=== PATIENT | female | born 1990 | race Two or more races ===

== ENCOUNTER 2016-11-11 10:24 | Emergency (ER) | payer MEDICAID ==
[~2016-11-11] VITALS: Ht 152.4 cm; Wt 59.0 kg
[2016-11-11 10:36] VITALS: BP 110/63
[2016-11-11 11:13] LABS: Basophils # (auto) 0 uL; Basophils % (auto) 0.1 % (0.0-2.0); DEFINITIVE VIEW TRANSMISSION; Eosinophils # (auto) 0 uL; Eosinophils % (auto) 0.4 % (0.0-7.0); Hematocrit 37.6 % (36.0-46.0); Hemoglobin 12.4 g/dL (12.2-16.2); Lymphocytes # (auto) 1.3 uL; Mean Corpuscular Hgb Conc. 32.8 g/dL (32.0-36.0); Mean Corpuscular Volume 79.2 fL (80.0-100.0); Mean Platelet Volume 8.7 fL (7.4-10.4); Monocytes # (auto) 0.4 uL; Monocytes % (auto) 5.1 % (0.0-12.0); Neutrophils # (auto) 5.4 uL; Neutrophils % (auto) 76.4 % (37.0-80.0); Platelet Count (auto) 237 10^3/uL (140-450); Red Cell Distribution Width 13.1 % (11.6-16.0)
[2016-11-11 11:44] LABS: Albumin 3.8 g/dL (3.4-5.0); BUN/Creatinine Ratio 13.7; Bilirubin, Total 0.4 mg/dL (0.2-1.0); Calcium 8.9 mg/dL (8.5-10.1); Magnesium 2.2 mg/dL (1.6-2.6); Potassium 3.8 mmol/L (3.5-5.1); Total Protein 7.7 g/dL (6.4-8.2)
[2016-11-11 11:47] LABS: Amylase 66 U/L (25-115)
== END 2016-11-11 14:32 | disposition left against medical advice (07) ==
LOC: ER 10:31
DX: O21.8 Other vomiting complicating pregnancy (principal); R10.84 Generalized abdominal pain; Z3A.00 Weeks of gestation of pregnancy not specified; Z53.21 Procedure and treatment not carried out due to patient leaving prior to being seen by health care provider
CPT/HCPCS: 36415; 80053; 82150; 83690; 83735; 84702; 85025

== ENCOUNTER 2017-02-24 18:00 | Observation (INO) | payer MEDICAID ==
[~2017-02-24] VITALS: Ht 154.9 cm; Wt 69.4 kg
[2017-02-24] MEDS ORDERED: ONDANSETRON HCL 4 MG/2 ML VIAL IV ONE (18:45)
[2017-02-24] MEDS ORDERED: LOPERAMIDE 2 MG/10ml ORAL soln PO ONE (18:45)
[2017-02-24] MEDS ORDERED: LACTATED RINGER'S 1,000 ML IV ONE (18:49)
[2017-02-24 19:18] LABS: Basophils # (auto) 0 uL; Basophils % (auto) 0.3 % (0.0-2.0); DEFINITIVE VIEW TRANSMISSION; Eosinophils # (auto) 0 uL; Eosinophils % (auto) 0.1 % (0.0-7.0); Hematocrit 35.3 % (36.0-46.0); Hemoglobin 11.7 g/dL (12.2-16.2); Lymphocytes # (auto) 0.4 uL; Lymphocytes % (auto) 5.7 % (10.0-50.0); Mean Corpuscular Hemoglobin 26.2 pg (28.0-32.0); Mean Corpuscular Hgb Conc. 33.2 g/dL (32.0-36.0); Mean Corpuscular Volume 78.8 fL (80.0-100.0); Mean Platelet Volume 8.9 fL (7.4-10.4); Monocytes # (auto) 0.2 uL; Monocytes % (auto) 2.6 % (0.0-12.0); Neutrophils # (auto) 6.7 uL; Neutrophils % (auto) 91.3 % (37.0-80.0); Platelet Count (auto) 206 10^3/uL (140-450); Red Cell Distribution Width 13.6 % (11.6-16.0); White Blood Cell 7.4 10^3/uL (4.4-10.8)
[2017-02-24] MEDS ORDERED: LOPERAMIDE HCL 2 MG CAP PO ONE (19:30)
[2017-02-24 19:44] LABS: Albumin 3.1 g/dL (3.4-5.0); BUN/Creatinine Ratio 16.7; Calcium 7.9 mg/dL (8.5-10.1); Potassium 3.2 mmol/L (3.5-5.1)
[2017-02-24 19:47] LABS: Bilirubin, Total 0.8 mg/dL (0.2-1.0); Total Protein 6.9 g/dL (6.4-8.2)
== END 2017-02-24 20:18 | disposition home or self-care (01) | DRG 566 ==
LOC: LDRP 18:00
PROVIDERS: ADMIT Specialist; ATTEND Specialist
DX: O21.2 Late vomiting of pregnancy (principal); O26.892 Other specified pregnancy related conditions, second trimester; R19.7 Diarrhea, unspecified; Z3A.23 23 weeks gestation of pregnancy
CPT/HCPCS: 36415; 59025; 80053; 81002; 85025; 96374; G0378; J2405; 96365; 96375

== ENCOUNTER 2017-06-05 15:35 | Observation (INO) | payer MEDICAID ==
[2017-06-05] MEDS ORDERED: LACTATED RINGER'S 1,000 ML IV ONE (17:30)
== END 2017-06-05 22:08 | disposition home or self-care (01) | DRG 566 ==
LOC: LDRP 15:35
PROVIDERS: ADMIT Obstetrics & Gynecology; ATTEND Obstetrics & Gynecology
DX: O42.92 Full-term premature rupture of membranes, unspecified as to length of time between rupture and onset of labor (principal); O62.9 Abnormality of forces of labor, unspecified; Z3A.38 38 weeks gestation of pregnancy
CPT/HCPCS: 59025; 76815; 76818; 81002; 96360; G0378; 96361; 96366

== ENCOUNTER 2019-10-03 11:24 | Emergency (ER) | payer MEDICAID ==
[~2019-10-03] VITALS: Ht 154.9 cm; Wt 69.9 kg
[2019-10-03 11:52] VITALS: BP 97/55
== END 2019-10-03 13:04 | disposition home or self-care (01) ==
LOC: ER 11:24
DX: J06.9 Acute upper respiratory infection, unspecified (principal)
CPT/HCPCS: 71046

== ENCOUNTER 2025-01-13 06:13 | Emergency (ER) | payer MEDICAID ==
[~2025-01-13] VITALS: Ht 154.9 cm; Wt 75.0 kg
[2025-01-13 06:25] VITALS: BP 122/78; PULSE 92; RESP 18; TEMP 98.3; O2SAT 97
--- NOTE | 2025-01-13 06:55 | ED.PDOC ---
SOB-HPI HPI Comments A 34 YEAR OLD FEMALE PRESENTS TO THE ED WITH CHIEF COMPLAINT OF FLU-LIKE ILLNESS. PATIENT REPORTS THAT SHE HAS BEEN EXPERIENCING A COUGH WITH ASSOCIATED FEVER, NASAL CONGESTION, CHEST PRESSURE, AND SORE THROAT FOR THE PAST 3 DAYS. PATIENT RELAYS THAT SHE HAD BEEN EXPOSED TO HER SON WHO WAS SICK AT HOME FOR THE PAST FEW DAYS. PATIENT DENIES ANY N/V/D, ABDOMINAL PAIN, CHILLS, HEADACHE, DIZZINESS, SOB, OR EAR PAIN. NO OTHER SYMPTOMS REPORTED AT THIS TIME OF CARE. Chief Complaint: Flu like Time Seen by MD: 06:52 Primary Care Provider: ANNABEL Reviewed notes: Nurses Notes, Medications, Allergies Information Source: Patient Mode of Arrival: Ambulatory Severity: Moderate Timing: Days Duration: Since onset Context: At Rest PE Risk Factors: None History of: Recent URI Prehospital treatment: None Modifying Factors: Nothing Associated Signs and Symptoms: Fever, Cough, Nasal Congestion, Sore Throat Quality: Pressure Radiation: No Radiation Location: Substernal If cough with SOB: Productive Past Medical History PAST MEDICAL HISTORY: Denies Surgical History: Denies all surgeries 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 Family History Family History: Unknown Social History Smoker: Non-Smoker Alcohol: Denies ETOH Use Drugs: Denies Drug Use Lives In: Home Constitutional: reports: fever; denies: chills, diaphoresis, fatigue, malaise, sweats, weakness, others EENTM: reports: nose congestion, throat pain, throat swelling; denies: blurred vision, double vision, ear bleeding, ear discharge, ear drainage, ear pain, ear ringing, eye pain, eye redness, hearing loss, mouth pain, mouth swelling, nasal discharge, nose bleeding, nose pain, photophobia, tearing, voice changes, others Respiratory: reports: cough; denies: hemoptysis, orthopnea, SOB at rest, shortness of breath, SOB with excertion, stridor, wheezing, others Cardiovascular: reports: chest pain; denies: dizzy spells, diaphoresis, Dyspnea on exertion, edema, irregular heart beat, left arm pain, lightheadedness, palpitations, PND, syncope, others Gastrointestinal: denies: abdomen distended, abdominal pain, blood streaked bowels, constipated, diarrhea, dysphagia, difficulty swallowing, hematemesis, melena, nausea, poor appetite, poor fluid intake, rectal bleeding, rectal pain, vomiting, others Genitourinary: denies: abnormal vagina bleeding, burning, dyspareunia, dysuria, flank pain, frequency, hematuria, incontinence, pain, , vagina discharge, urgency, others Neurological: denies: dizziness, fainting, headache, left sided numbness, left sided weakness, numbness, paresthesia, pre-existing deficit, right sided numbness, right sided weakness, seizure, speech problems, tingling, tremors, weakness, others Musculoskeletal: denies: back pain, gout, joint pain, joint swelling, muscle pain, muscle stiffness, neck pain, others Integumetry: denies: bruises, change in color, change in hair/nails, dryness, laceration, lesions, lumps, rash, wounds, others Allergic/Immunocompromised: denies: Difficulty Healing, Frequent Infections, Hives, Itching, others Hematologic/Lymphatic: denies: anemia, blood clots, easy bleeding, easy bruising, swollen glands, others Endocrine: denies: excessive hunger, excessive sweating, excessive thirst, excessive urination, flushing, intolerance to cold, intolerance to heat, unexplained weight gain, unexplained weight loss, others Psychiatric: denies: anxiety, bipolar disorder, depression, hopeless, panic disorder, schizophrenia, sleepless, suicidal, others All Other Systems: Reviewed and Negative Physical Exam General Appearance: No Apparent Distress, Normal HEENT: PERRL/EOMI, Pharyngeal Erythema (TONSILLAR SWELLING, NO EXUDATES. ) Neck: Full Range of Motion, Non-Tender, Normal, Normal Inspection Respiratory: Chest Non-Tender, Expiration, No Accessory Muscle Use, No Respiratory Distress, Rhonchi Cardiovascular: No Edema, No JVD, No Murmur, No Gallop, Normal Peripheral Pulses, Regular Rate/Rhythm Breast Exam: Deferred Gastrointestinal: No Organomegaly, Non Tender, No Pulsatile Mass, Normal Bowel Sounds, Soft Genitalia: Deferred Pelvic: Deferred Rectal: Deferred Extremities: No calf tenderness, Normal capillary refill, Normal inspection, Normal range of motion, Non-tender, No pedal edema Musculoskeletal : Apperance: Normal Neurologic: Alert, infection prevention coordinator II-XII nml as Tested, No Motor Deficits, Normal Affect, Normal Mood, No Sensory Deficits Cerebellar Function: Normal Reflexes: Normal Skin: Dry, Normal Color, Warm Peripheral Pulses: 2+ carotid (R), 2+ carotid (L) Lymphatic: No Adenopathy Was a procedure done? Was a procedure done?: No Differential Dx Differential Diagnosis: Bronchitis, COPD, Pneumonia, Sinusitis, Allergic Rhinitis, Otitis Media, Pharyngitis, URI X-Ray, Labs, Meds, VS Vital Signs Date Time Temp Pulse Resp B/P (MAP) Pulse Ox O2 Delivery O2 Flow Rate FiO2 01/13/25 06:25 Room Air 01/13/25 06:25 98.3 92 18 122/78 (93) 97 98.3 01/13/25 06:25 98.3 92 18 122/78 (93) 97 Current Medications Medications (Trade) Dose Ordered Sig/Mackenzie Route Start Time Stop Time Status Last Admin Ceftriaxone Sodium (Rocephin) 1,000 mg ONCE ONCE IM 01/13/25 07:00 01/13/25 07:01 DC 01/13/25 07:02 X-Ray, Labs, Meds, VS Comment EXTERNAL MEDICAL RECORDS REVIEWED: [NONE] INDEPENDENT HISTORIANS: [NONE] SOCIAL DETERMINANTS OF HEALTH: [NONE] LABS ORDERED: NONE REVIEWED AND INTERPRETED RESULTS: CHEST XR INTERPRETED BY ME. NO ACUTE FINDINGS. NO PNEUMONIA. NO CONSOLIDATIONS. NO INFILTRATES. PENDING RADIOLOGIST REPORT. IMAGING ORDERED: CHEST XR: NO ACUTE FINDING, READ BY ME, PENDING RADIOLOGIST READING. TREATMENTS ORDERED: ROCEPHIN 1G IM PROCEDURES PERFORMED: NONE CRITICAL CARE TIME: NONE I HAVE DISCUSSED THE PATIENT WITH THE ATTENDING PHYSICIAN DR. KUMAR AND HE AGREES WITH THE PATIENT'S PLAN OF CARE AND DISPOSITION. BASED ON HISTORY OF PRESENT ILLNESS, AND PHYSICAL EXAM, PATIENT WILL BE DISCHARGED HOME. DISCUSSED PLAN FOR DISCHARGE HOME WITH RX. MEDICATION WARNINGS GIVEN. SHARED DECISION MAKING: DISCUSSED WITH PATIENT THAT THEIR WORKUP WAS NORMAL. PATIENT INSTRUCTED TO FOLLOW UP WITH PRIMARY CARE PROVIDER IN 1-2 DAYS FOR RE- EVALUATION OF SYMPTOMS. PATIENT VERBALIZES UNDERSTANDING TO RETURN TO ED FOR NEW OR WORSENING SYMPTOMS OR IF FOLLOW UP WITH PCP CANNOT BE OBTAINED. PATIENT FEELS COMFORTABLE GOING HOME AT THIS TIME. ALL QUESTIONS ADDRESSED AT TIME OF DISCHARGE. Images Reviewed?: Images reviewed and evaluated by me Time of 1ST Reevaluation: 07:20 Reevaluation 1ST: Improved Patient Education/Counseling: Diagnosis, Treatment, Need For Follow Up Family Education/Counseling: Diagnosis, Treatment, Need For Follow Up Medical Screening: No EMC Exist At This Time Departure 1 Departure Time of Disposition: 07:20 Impression: Primary Impression: Acute erythematous tonsillitis Additional Impression: Acute bronchitis Qualified Codes: J20.9 - Acute bronchitis, unspecified Disposition: HOME / SELF CARE / HOMELESS Condition: Stable Additional Instructions: FOLLOW-UP WITH PCP IN 1 TO 2 DAYS. TAKE MEDICATIONS PRESCRIBED. RETURN TO ED FOR ANY NEW OR WORSENING SYMPTOMS. e-Prescriptions Promethazine-Dm (Promethazine Dm 6.25-15 mg/5Ml) 1 Opal Opal 5 ML PO TID, #160 ML Prov: LAINE HOWELL 01/13/25 Azithromycin (Azithromycin) 500 Mg Tab 1 TAB PO DAILY, #5 TAB Prov: LAINE HOWELL 01/13/25 Discharged With: Self, Relative Critical Care Note Critical Care Time?: No Stability Stability form required: No Heart Score Heart Score: Heart Score Response (Comments) Value History N/A 0 EKG N/A 0 Age N/A 0 Risk Factors N/A 0 Troponin N/A 0 Total 0 I personally scribed for LAINE HOWELL ([email or web address]) on 01/13/25 at 06:55. Electronically submitted by Martínez Albrecht ([email or web address]). I personally scribed for LAINE HOWELL ([email or web address]) on 01/13/25 at 07:02. Electronically submitted by Martínez Albrecht ([email or web address]). LAINE HOWELL Jan 13, 2025 06:55
[2025-01-13] MEDS ORDERED: AZIT500T66 PO (07:01)
[2025-01-13] MEDS ORDERED: PROM1SOL4 PO (07:01)
[2025-01-13] MEDS: cefTRIAXone SOD 1,000 MG VL IM ONE (07:02)
--- NOTE | 2025-01-13 07:12 | DVH ---
EXAM: XR Chest, 1 View CLINICAL INDICATION: COUGH TECHNIQUE: Frontal view of the chest. COMPARISON: None FINDINGS: LUNGS AND PLEURAL SPACES: Unremarkable. No consolidation. No pneumothorax. HEART: Unremarkable. No cardiomegaly. MEDIASTINUM: Unremarkable. Normal mediastinal contour. BONES/JOINTS: Unremarkable. No acute fracture. OTHER FINDINGS: . None. IMPRESSION: No acute cardiopulmonary process.
== END 2025-01-13 07:14 | disposition home or self-care (01) ==
LOC: ER 06:13
DX: J03.90 Acute tonsillitis, unspecified (principal); J20.9 Acute bronchitis, unspecified
CPT/HCPCS: 71045; 96372; 99283; J0696

== ENCOUNTER 2025-09-27 05:59 | Inpatient (IN) | payer MEDICAID ==
[~2025-09-27] VITALS: Ht 154.9 cm; Wt 71.2 kg
[~2025-09-27 05:59] MED LIST: AZIT500T66 PO; PROM1SOL4 PO
--- NOTE | 2025-09-27 06:12 | ECG ---
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
--- NOTE | 2025-09-27 06:31 | ED.PDOC ---
HPI Comments 35 year old female presents to the ED with a chief complaint of chest pain onset 1 day. Patient states she began experiencing LT sided substernal chest pain radiates to epigastric region for the past day, describes pain as a cramping sensation. Currently rates pain 8/10. She is also experiencing nausea/vomiting. Denies any possibilty of , states she is currently on her menstrual cycle, P:5. Denies shortness of breath, diarrhea, constipation, hematemesis,dysuria, hematuria, fever, chills, dizziness, headache. No other symptoms or modifying factors present at this time. Chief Complaint: Chest Pain Time Seen by MD: 06:10 Primary Care Provider: ANNABEL Reviewed Notes: Nurses Notes, Medications, Allergies Allergies: Coded Allergies: NO KNOWN ALLERGIES (Unverified , 03/08/14) Home Meds Active Scripts Promethazine-Dm (Promethazine Dm 6.25-15 mg/5Ml) 1 Opal Opal, 5 ML PO TID, #160 ML Prov:LAINE HOWELL 01/13/25 Azithromycin (Azithromycin) 500 Mg Tab, 1 TAB PO DAILY, #5 TAB Prov:LAINE HOWELL 01/13/25 Information Source: Patient Mode of Arrival: Ambulatory Severity: Moderate Timing: Days Duration: Since onset Prehospital treatment: None Location: Chest (L) Radiation: Abdomen Quality: Aching Onset: At Rest Cardiac Risk Factors: None PE Risk Factors: None History of: None Modifying Factors: Nothing Associated Signs and Symptoms: Abdominal Pain Past Medical History PAST MEDICAL HISTORY: Denies Surgical History: 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 Family History Family History: Family hx of DM, Family hx of HTN Social History Smoker: Non-Smoker Alcohol: Occasionally Drugs: Denies Drug Use Lives In: Home Constitutional: denies: chills, diaphoresis, fatigue, fever, malaise, sweats, weakness, others EENTM: denies: blurred vision, double vision, ear bleeding, ear discharge, ear drainage, ear pain, ear ringing, eye pain, eye redness, hearing loss, mouth pain, mouth swelling, nasal discharge, nose bleeding, nose congestion, nose pain, photophobia, tearing, throat pain, throat swelling, voice changes, others Respiratory: denies: cough, hemoptysis, orthopnea, SOB at rest, shortness of breath, SOB with excertion, stridor, wheezing, others Cardiovascular: reports: chest pain; denies: dizzy spells, diaphoresis, Dyspnea on exertion, edema, irregular heart beat, left arm pain, lightheadedness, palpitations, PND, syncope, others Gastrointestinal: reports: abdominal pain, nausea, vomiting; denies: abdomen distended, blood streaked bowels, constipated, diarrhea, dysphagia, difficulty swallowing, hematemesis, melena, poor appetite, poor fluid intake, rectal bleeding, rectal pain, others Genitourinary: denies: abnormal vagina bleeding, burning, dyspareunia, dysuria, flank pain, frequency, hematuria, incontinence, pain, , vagina discharge, urgency, others Neurological: denies: dizziness, fainting, headache, left sided numbness, left sided weakness, numbness, paresthesia, pre-existing deficit, right sided numbness, right sided weakness, seizure, speech problems, tingling, tremors, weakness, others Musculoskeletal: denies: back pain, gout, joint pain, joint swelling, muscle pain, muscle stiffness, neck pain, others Integumetry: denies: bruises, change in color, change in hair/nails, dryness, laceration, lesions, lumps, rash, wounds, others Allergic/Immunocompromised: denies: Difficulty Healing, Frequent Infections, Hives, Itching, others Hematologic/Lymphatic: denies: anemia, blood clots, easy bleeding, easy bruising, swollen glands, others Endocrine: denies: excessive hunger, excessive sweating, excessive thirst, excessive urination, flushing, intolerance to cold, intolerance to heat, unexplained weight gain, unexplained weight loss, others Psychiatric: denies: anxiety, bipolar disorder, depression, hopeless, panic disorder, schizophrenia, sleepless, suicidal, others All Other Systems: Reviewed and Negative Physical Exam General Appearance: Moderate Distress HEENT: Normal ENT Inspection, Pharynx Normal, TMs Normal Neck: Full Range of Motion, Non-Tender, Normal, Normal Inspection Respiratory: Chest Non-Tender, Lungs Clear, No Accessory Muscle Use, No Respiratory Distress, Normal Breath Sounds Cardiovascular: No Edema, No JVD, No Murmur, No Gallop, Normal Peripheral Pulses, Regular Rate/Rhythm Breast Exam: Deferred Gastrointestinal: Epigastric, No Organomegaly, No Pulsatile Mass, Normal Bowel Sounds, Soft, Tenderness Genitalia: Deferred Pelvic: Deferred Rectal: Deferred Extremities: No calf tenderness, Normal capillary refill, Normal inspection, Normal range of motion, Non-tender, No pedal edema Musculoskeletal : Apperance: Normal Neurologic: Alert, esol teacher assistant II-XII nml as Tested, No Motor Deficits, Normal Affect, Normal Mood, No Sensory Deficits Cerebellar Function: Normal Reflexes: Normal Skin: Dry, Normal Color, Warm Lymphatic: No Adenopathy EKG EKG : Pulse Rate (adult): 70 Cardiac Rhythm: NSR Was a procedure done? Was a procedure done?: No CP Differential Dx Differential Diagnosis: Angina, VA, Other (Cholelithiasis) Differential Diagnosis: Pericarditis X-Ray, Labs, Meds, VS Vital Signs Date Time Temp Pulse Resp B/P (MAP) Pulse Ox O2 Delivery O2 Flow Rate FiO2 09/27/25 07:14 69 09/27/25 06:31 70 09/27/25 06:09 70 09/27/25 06:02 98.5 66 16 134/87 97 98.5 Lab Test 09/27/25 07:05 09/27/25 06:15 Range/Units Total Bilirubin Pending Direct Bilirubin Pending Aspartate Amino Transferase (AST) Pending Alanine Aminotransferase (ALT) Pending Alkaline Phosphatase Pending Troponin I High Sensitivity Pending 6 </=34 ng/L Total Protein Pending Albumin Pending White Blood Count 3.0 L 4.4-10.8 10^3/uL Red Blood Count 4.31 4.0-5.20 10^6/uL Hemoglobin 11.9 L 12.2-16.2 g/dL Hematocrit 35.3 L 36.0-46.0 % Mean Corpuscular Volume 81.9 80.0-100.0 fL Mean Corpuscular Hemoglobin 27.6 L 28.0-32.0 pg Mean Corpuscular Hemoglobin Concent 33.7 32.0-36.0 g/dL Red Cell Distribution Width 12.5 11.8-14.3 % Platelet Count 261 140-450 10^3/uL Mean Platelet Volume 7.7 6.9-10.8 fL Neutrophils (%) (Auto) 54.1 37.0-80.0 % Lymphocytes (%) (Auto) 36.5 10.0-50.0 % Monocytes (%) (Auto) 7.5 0.0-12.0 % Eosinophils (%) (Auto) 1.3 0.0-7.0 % Basophils (%) (Auto) 0.6 0.0-2.0 % Neutrophils # (Auto) 1.6 1.6-8.6 10 ^3/uL Lymphocytes # (Auto) 1.1 0.4-5.4 10 ^3/uL Monocytes # (Auto) 0.2 0-1.3 10 ^3/uL Eosinophils # (Auto) 0 0-0.8 10 ^3/uL Basophils # (Auto) 0 0-0.2 10 ^3/uL Nucleated Red Blood Cells 0.1 % Sodium Level 141 136-145 mmol/L Potassium Level 3.7 3.5-5.1 mmol/L Chloride Level 104 98-107 mmol/L Carbon Dioxide Level 27 20-31 mmol/L Anion Gap 10 5-15 Blood Urea Nitrogen 11 9-23 mg/dL Creatinine 0.65 0.550-1.02 mg/dL Glomerular Filtration Rate Calc 117 >90 mL/min BUN/Creatinine Ratio 16.9 10.0-20.0 Serum Glucose 91 74-106 mg/dL Calcium Level 9.0 8.7-10.4 mg/dL Lipase Pending IMPRESSION: 1. No acute cardiopulmonary disease. The patient's CBC is within normal limits except for leukopenia at 3.0 The chemistry panel is within normal limits. The ultrasound of the gallbladder shows: IMPRESSION: 1. Dilated common bile duct measuring 0.8 cm. No filling defect. MRCP recommended for further evaluation. 2. Hepatic steatosis. At this time, the patient had an IV Hep-Lock established. The patient was given Protonix 40 mg IV push The patient was given Zofran 4 mg IV push The patient is being admitted at this time We did order liver enzymes to assess a need for MRCP. The patient understands and agrees with the management. Images Reviewed?: Images reviewed and evaluated by me Time of 1ST Reevaluation: 06:40 Reevaluation 1ST: Unchanged Patient Education/Counseling: Diagnosis, Treatment, Prognosis Family Education/Counseling: No Family Present SEPSIS Sepsis Screen Date sepsis recognized/suspect: Sep 27, 2025 Time Sepsis recognized/suspect: 0604 Recent Procedure: No On Antibiotic Therapy: No Respiratory Rate >20: No Heart Rate >90: No Temp<36 C (96.8 F) or >38.3 C: No SBP <90 or MAP <65 mmHG: No New Acute Mental Status Change: No Is the patient on CPAP, BIPAP,: No Physician Orders Chest Portable (09/27/25 06:05) Troponin-I Hs (09/27/25 07:05) Troponin-I Hs (09/27/25 09:05) Electrocardigram (09/27/25 09:05) Gallbladder (09/27/25 06:17) Lipase (09/27/25 06:17) Heplock Iv (09/27/25 ) Hepatic Panel (09/27/25 07:16) Vital Signs Date Time Temp Pulse Resp B/P (MAP) Pulse Ox O2 Delivery O2 Flow Rate FiO2 09/27/25 07:14 69 09/27/25 06:31 70 09/27/25 06:09 70 09/27/25 06:02 98.5 66 16 134/87 97 98.5 Laboratory Tests Test 09/27/25 06:15 White Blood Count 3.0 10^3/uL (4.4-10.8) L Departure 1 Departure Time of Disposition: 07:27 Impression: Primary Impression: Intractable abdominal pain Additional Impressions: Acute vomiting Common bile duct dilatation Disposition: ADMITTED INPATIENT Admit to: Med Surg Condition: Fair Critical Care Note Critical Care Time?: No Stability Stability form required: Yes Unstable for transfer: ED Physician Assesment (Clinical assesment) Heart Score Heart Score: Heart Score Response (Comments) Value History N/A 0 EKG N/A 0 Age N/A 0 Risk Factors N/A 0 Troponin N/A 0 Total 0 I personally scribed for RJ ARIAS MD ([email or web address]) on 09/27/25 at 06:31. Electronically submitted by Aminata Arzate ([email or web address]). I personally scribed for RJ ARIAS MD ([email or web address]) on 09/27/25 at 07:19. Electronically submitted by Aminata Arzate ([email or web address]). RJ ARIAS MD Sep 27, 2025 06:31
[2025-09-27 06:38] LABS: Hematocrit 35.3 % (36.0-46.0); Hemoglobin 11.9 g/dL (12.2-16.2); Mean Corpuscular Hemoglobin 27.6 pg (28.0-32.0); Mean Corpuscular Volume 81.9 fL (80.0-100.0); Nucleated Red Blood Cells % 0.1 %
[2025-09-27 06:42] LABS: Chloride 104 mmol/L (98-107); Potassium 3.7 mmol/L (3.5-5.1); Sodium 141 mmol/L (136-145)
[2025-09-27 06:43] LABS: Anion Gap 10 (5-15); Calcium 9.0 mg/dL (8.7-10.4); Carbon Dioxide 27 mmol/L (20-31)
[2025-09-27 06:48] LABS: BUN/Creatinine Ratio 16.9 (10.0-20.0); Blood Urea Nitrogen 11 mg/dL (9-23); Glucose 91 mg/dL (74-106)
--- NOTE | 2025-09-27 07:07 | DVH ---
EXAM: US GALLBLADDER INDICATION: pain TECHNIQUE: Multiple real-time sonographic images were obtained of the right upper quadrant. COMPARISON: None FINDINGS: The liver demonstrates increased echotexture without focal mass lesions. The liver measures 16.6 cm. There is hepatopedal color doppler flow in the main portal vein. There is no intrahepatic biliary ductal dilatation. The gallbladder is without evidence of stone or sludge. The gallbladder wall measures 0.3 cm. The common bile duct measures 0.8 cm. No filling defect. There is a negative sonographic Wilson's sign. The right kidney measures 11.2 cm. The right kidney is normal in contour, size, and shape. The echogenicity is normal. There is no hydronephrosis. The pancreas is not well visualized due to overlying bowel gas. Visualized portions of the aorta and inferior vena cava are unremarkable. No evidence of ascites. IMPRESSION: 1. Dilated common bile duct measuring 0.8 cm. No filling defect. MRCP recommended for further evaluation. 2. Hepatic steatosis.
--- NOTE | 2025-09-27 07:15 | ECG ---
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
--- NOTE | 2025-09-27 07:17 | DVH ---
CHEST RADIOGRAPH Indication: CHEST PAIN Technique: Single frontal view of the chest was obtained Comparison: XY CHEST XRAY 1 VIEW on DOS: 01/13/25 FINDINGS: Lines and Tubes: None Lungs: No focal consolidation. Pleura: No effusion. No pneumothorax. Cardiomediastinal contours: Unremarkable Bones: No acute osseous abnormality. IMPRESSION: 1. No acute cardiopulmonary disease.
[2025-09-27] MEDS: PANTOPRAZOLE 40 MG/10 ML VIAL INJ IV ONE (07:44)
[2025-09-27] MEDS: ONDANSETRON HCL 4 MG/2 ML VIAL IV ONE (07:44)
[2025-09-27 07:54] LABS: Alanine Aminotransferase 21.0 U/L (7-40); Albumin 4.4 g/dL (3.2-4.8); Alkaline Phosphatase 56.0 U/L (46-116); Bilirubin, Direct 0.1 mg/dL (<0.3); Bilirubin, Total 0.5 mg/dL (0.2-1.0); Total Protein 6.9 g/dL (5.7-8.2)
--- NOTE | 2025-09-27 09:29 | ECG ---
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
[2025-09-27 10:14] VITALS: BP 136/51; PULSE 68; RESP 16; TEMP 98.1; O2SAT 98
[2025-09-27] MEDS ORDERED: DULO1CAP6 PO (10:27)
[2025-09-27] MEDS ORDERED: ALPR0.5T8 PO (10:27)
[2025-09-27] MEDS ORDERED: ONDANSETRON HCL 4 MG/2 ML VIAL IV PRN (10:30)
[2025-09-27] MEDS ORDERED: DOCUSATE SOD 100 MG CAP PO PRN (10:30)
[2025-09-27] MEDS ORDERED: MORPHINE SULFATE INJ 2 MG/ml SYRG IV PRN (10:30)
[2025-09-27] MEDS ORDERED: HYDROcodone-ACET 5/325MG TAB PO PRN (10:30)
[2025-09-27] MEDS ORDERED: ACETAMINOPHEN 325 MG TAB PO PRN (10:30)
[2025-09-27] MEDS ORDERED: ALPRAZolam 0.5 MG TAB PO PRN (10:30)
--- NOTE | 2025-09-27 10:37 | DVHHP2 ---
History of Present Illness Reason for Visit: Abdomianl pain History of Present Illness Violet Esquivel is a 35-year-old female with past medical history of anxiety, who came to the hospital for abdominal pain. States she began having epigastric pain with associated nausea and vomiting last night. Her symptoms continued and did not improve prompting her to come to the hospital this morning. Psych: Anxiety Past Surgical History: None Smoke: No ALCOHOL: none Drugs: None Lives: with Family Domestic Violence: Neg Review of Systems Constitutional: No: Fever, Chills, Sweats, Weakness, Malaise, Other Eyes: No: Pain, Vision change, Conjunctivae inflammation, Eyelid inflammation, Other, Redness ENT: No: Ear pain, Ear discharge, Nose pain, Nose discharge, Nose congestion, Mouth pain, Mouth swelling, Throat pain, Throat swelling, Other Respiratory: No: Cough, Dry, Shortness of breath, SOB with excertion, Wheezing, Hemoptysis, Pleuritic Pain, Sputum, Wheezing, Other Cardiovascular: No: Chest Pain, Palpitations, Orthopnea, Paroxysmal Noc. Dyspnea, Edema, Lt Headedness, Other Gastrointestinal: Nausea, Vomiting, Abdominal Pain (epigastric); No: Diarrhea, Constipation, Melena, Hematochezia, Other Genitourinary: No Dysuria, No Frequency, No Incontinence, No Hematuria, No Retention, No Other Musculoskeletal: No: other, neck pain, shoulder pain, arm pain, back pain, hand pain, leg pain, foot pain Skin: No: Rash, Lesions, Jaundice, Bruising, Other Neurological: No: Weakness, Numbness, Incoordination, Change in speech, Confusion, Seizures, Other Allergies: Coded Allergies: NO KNOWN ALLERGIES (Unverified , 03/08/14) Medications Current Medications Medications Dose Ordered Sig/Mackenzie Route Start Time Stop Time Status Last Admin Dose Admin Acetaminophen/ Hydrocodone Bitart 1 tab Q4HP PRN PO 09/27/25 10:30 UNV Ondansetron HCl 4 mg Q4HP PRN IV 09/27/25 10:30 UNV Docusate Sodium 100 mg BIDPRN PRN PO 09/27/25 10:30 UNV Acetaminophen 650 mg Q6HP PRN PO 09/27/25 10:30 UNV Morphine Sulfate 2 mg Q4HPRN PRN IV 09/27/25 10:30 UNV Exam Vital Signs Vital Signs Date Time Temp Pulse Resp B/P (MAP) Pulse Ox O2 Delivery O2 Flow Rate FiO2 09/27/25 10:14 98.1 68 16 136/51 (79) 98 98.1 09/27/25 07:47 Room Air General Appearance: Alert, Oriented X3, Cooperative, mild distress HEENT: Atraumatic, PERRLA, Other (Mucous membr dry) Respiratory: Clear to auscultation, Normal air movement Cardiovascular: Regular rate, Normal S1, Normal S2, No murmurs Abdominal: Normal bowel sounds, Soft, Other (epigastric tenderness) Extremities: No clubbing, No cyanosis, No edema, Normal pulses, No tenderness/swelling Skin: No rashes, No breakdown, No significant lesion Neuro: Normal gait, Normal speech, Strength at 5/5 X4 ext, Normal tone Psych/Mental Status: Mental status NL, Mood NL Labs/Xrays Labs Test 09/27/25 09:05 09/27/25 07:05 09/27/25 06:15 Range/Units Troponin I High Sensitivity 7 </=34 ng/L Total Bilirubin 0.5 0.2-1.0 mg/dL Direct Bilirubin 0.1 <0.3 mg/dL Aspartate Amino Transferase (AST) 25 13-40 U/L Alanine Aminotransferase (ALT) 21 7-40 U/L Alkaline Phosphatase 56 46-116 U/L Total Protein 6.9 5.7-8.2 g/dL Albumin 4.4 3.2-4.8 g/dL White Blood Count 3.0 L 4.4-10.8 10^3/uL Red Blood Count 4.31 4.0-5.20 10^6/uL Hemoglobin 11.9 L 12.2-16.2 g/dL Hematocrit 35.3 L 36.0-46.0 % Mean Corpuscular Volume 81.9 80.0-100.0 fL Mean Corpuscular Hemoglobin 27.6 L 28.0-32.0 pg Mean Corpuscular Hemoglobin Concent 33.7 32.0-36.0 g/dL Red Cell Distribution Width 12.5 11.8-14.3 % Platelet Count 261 140-450 10^3/uL Mean Platelet Volume 7.7 6.9-10.8 fL Neutrophils (%) (Auto) 54.1 37.0-80.0 % Lymphocytes (%) (Auto) 36.5 10.0-50.0 % Monocytes (%) (Auto) 7.5 0.0-12.0 % Eosinophils (%) (Auto) 1.3 0.0-7.0 % Basophils (%) (Auto) 0.6 0.0-2.0 % Neutrophils # (Auto) 1.6 1.6-8.6 10 ^3/uL Lymphocytes # (Auto) 1.1 0.4-5.4 10 ^3/uL Monocytes # (Auto) 0.2 0-1.3 10 ^3/uL Eosinophils # (Auto) 0 0-0.8 10 ^3/uL Basophils # (Auto) 0 0-0.2 10 ^3/uL Nucleated Red Blood Cells 0.1 % Sodium Level 141 136-145 mmol/L Potassium Level 3.7 3.5-5.1 mmol/L Chloride Level 104 98-107 mmol/L Carbon Dioxide Level 27 20-31 mmol/L Anion Gap 10 5-15 Blood Urea Nitrogen 11 9-23 mg/dL Creatinine 0.65 0.550-1.02 mg/dL Glomerular Filtration Rate Calc 117 >90 mL/min BUN/Creatinine Ratio 16.9 10.0-20.0 Serum Glucose 91 74-106 mg/dL Calcium Level 9.0 8.7-10.4 mg/dL Lipase 45 12-53 U/L CHEST RADIOGRAPH FINDINGS: Lines and Tubes: None Lungs: No focal consolidation. Pleura: No effusion. No pneumothorax. Cardiomediastinal contours: Unremarkable Bones: No acute osseous abnormality. IMPRESSION: 1. No acute cardiopulmonary disease. EXAM: US GALLBLADDER FINDINGS: The liver demonstrates increased echotexture without focal mass lesions. The liver measures 16.6 cm. There is hepatopedal color doppler flow in the main portal vein. There is no intrahepatic biliary ductal dilatation. The gallbladder is without evidence of stone or sludge. The gallbladder wall measures 0.3 cm. The common bile duct measures 0.8 cm. No filling defect. There is a negative sonographic Wilson's sign. The right kidney measures 11.2 cm. The right kidney is normal in contour, size, and shape. The echogenicity is normal. There is no hydronephrosis. The pancreas is not well visualized due to overlying bowel gas. Visualized portions of the aorta and inferior vena cava are unremarkable. No evidence of ascites. IMPRESSION: 1. Dilated common bile duct measuring 0.8 cm. No filling defect. MRCP recom mended for further evaluation. 2. Hepatic steatosis. SEPSIS Sepsis Screen Date sepsis recognized/suspect: Sep 27, 2025 Time Sepsis recognized/suspect: 06 Recent Procedure: No On Antibiotic Therapy: No Respiratory Rate >20: No Heart Rate >90: No Temp<36 C (96.8 F) or >38.3 C: No SBP <90 or MAP <65 mmHG: No New Acute Mental Status Change: No Is the patient on CPAP, BIPAP,: No Physician Orders Chest Portable (09/27/25 06:05) Gallbladder (09/27/25 06:17) Heplock Iv (09/27/25 ) Admit (09/27/25 10:22) Code Status (09/27/25 10:22) Hydrocodone-Acet 5/325mg Tab (Ennis 5/32 (09/27/25 10:30) Ondansetron Hcl (Zofran) (09/27/25 10:30) Docusate Sodium Capsule (Colace Capsule) (09/27/25 10:30) Complete Blood Count (09/28/25 04:00) Comprehensive Metabolic Panel (09/28/25 04:00) Npo (Nothing By Mouth) Diet (09/27/25 Lunch) Condition: Serious (09/27/25 10:22) Acetaminophen Tablet (Tylenol Tablet) (09/27/25 10:30) Morphine Sulfate Injection (09/27/25 10:30) * Gi [facility] [employer] (09/27/25 10:22) Mrcp Mri (09/27/25 10:22) Alprazolam Tablet (Xanax Tablet) (09/27/25 10:30) (Nf) Duloxetine Hcl (09/28/25 10:00) Vital Signs Date Time Temp Pulse Resp B/P (MAP) Pulse Ox O2 Delivery O2 Flow Rate FiO2 09/27/25 10:14 98.1 68 16 136/51 (79) 98 98.1 09/27/25 09:28 67 09/27/25 07:47 98.2 79 18 148/97 (114) 98 98.2 09/27/25 07:47 79 18 98 Room Air 09/27/25 07:14 69 09/27/25 06:31 70 09/27/25 06:09 70 09/27/25 06:02 98.5 66 16 134/87 97 98.5 Laboratory Tests Test 09/27/25 06:15 White Blood Count 3.0 10^3/uL (4.4-10.8) L Medications Medications Dose Ordered Sig/Mackenzie Route Start Time Stop Time Status Last Admin Dose Admin Ondansetron HCl 4 mg ONCE ONCE IV 09/27/25 06:30 09/27/25 06:31 DC 09/27/25 07:44 4 MG Pantoprazole Sodium 40 mg ONCE ONCE IV 09/27/25 06:30 09/27/25 06:31 DC 09/27/25 07:44 40 MG Assessment/Plan Assessment/Plan Assessment: Common bile duct dilatation, Possible cholelithiasis, Hepatic steatosis, Anxiety, Plan: Admit to Med-Surg, GI consult, MRCP, IV hydration, NPO, Pain management, Antiemetics, Home medications reconciled, Plan discussed with: Patient My Orders Orders - DARA LIM Procedure Category Date Status Time Admit ADMIT 09/27/25 Transmitted 10:22 Code Status CODE 09/27/25 Transmitted 10:22 Hydrocodone-Acet PHA 09/27/25 Logged 5/325mg Tab (Ennis 10:30 Ondansetron Hcl PHA 09/27/25 Logged (Zofran) 10:30 Docusate Sodium PHA 09/27/25 Logged Capsule (Colace 10:30 Complete Blood Count LAB 09/28/25 Verified 04:00 Comprehensive LAB 09/28/25 Verified Metabolic Panel 04:00 Npo (Nothing By DIET 09/27/25 Transmitted Mouth) Diet Lunch Condition: Serious TAMMIE 09/27/25 In Process 10:22 Acetaminophen Tablet PHA 09/27/25 Logged (Tylenol Tablet) 10:30 Morphine Sulfate PHA 09/27/25 Logged Injection 10:30 * Gi [facility] [employer] CONS 09/27/25 Transmitted 10:22 Mrcp Mri MRI 09/27/25 Logged 10:22 Alprazolam Tablet PHA 09/27/25 Verified (Xanax Tablet) 10:30 (Nf) Duloxetine Hcl PHA 09/28/25 Verified 10:00 Date of Service: Sep 27, 2025 Billing Provider: DARA LIM Common Visit Codes: [id number] INP/OBS CARE (MOD) DARA LIM Sep 27, 2025 10:37
[2025-09-27] MEDS ORDERED: SODIUM CHLORIDE 0.9% 1,000 ML IV ONE ×2 (10:45)
[2025-09-27] MEDS ORDERED: METOCLOPRAMIDE HCL 5MG/ml INJ 2ml VIAL IV PRN (10:45)
== END 2025-09-27 11:34 | disposition left against medical advice (07) ==
LOC: ER 05:59 → OVERFLOW 10:22
PROVIDERS: ADMIT Nurse Practitioner Family; ATTEND Nurse Practitioner Family
DX: K80.20 Calculus of gallbladder without cholecystitis without obstruction (principal); F41.9 Anxiety disorder, unspecified; K76.0 Fatty (change of) liver, not elsewhere classified; K83.8 Other specified diseases of biliary tract; Z53.29 Procedure and treatment not carried out because of patient's decision for other reasons; Z82.49 Family history of ischemic heart disease and other diseases of the circulatory system; Z83.3 Family history of diabetes mellitus; Z87.59 Personal history of other complications of pregnancy, childbirth and the puerperium
CPT/HCPCS: 36415; 71045; 76705; 80048; 80076; 83690; 84484; 85025; 93005; 96374; 96375; G0378; J2405; J2470